=== PATIENT | female | born 1950 | race Caucasian/White ===

== ENCOUNTER 2025-01-31 18:21 | Inpatient (IN) | payer MEDICARE ==
[~2025-01-31] VITALS: Ht 152.4 cm; Wt 54.4 kg
[2025-01-31 20:00] VITALS: BP 129/82; TEMP 208.8; TEMP 98.2; O2SAT 96
[2025-01-31] MEDS ORDERED: FAMO20TA8 PO (22:38)
[2025-01-31] MEDS ORDERED: LOSA25TA27 PO (22:38)
[2025-01-31] MEDS ORDERED: GEMF600T PO (22:38)
[2025-01-31] MEDS ORDERED: FURO-145 PO (22:38)
[2025-01-31] MEDS ORDERED: METF-442 PO (22:38)
[2025-01-31] MEDS ORDERED: MAGNESIUM HYDROXIDE 30 ML UDC PO PRN (23:00)
[2025-01-31] MEDS ORDERED: DEXTROSE 50%-WATER 50 ML DISP.SYRIN IV PRN (23:00)
[2025-01-31] MEDS ORDERED: MAG HYDROX/AL HYDROX/SIMETH 30 ML UDC PO PRN (23:00)
[2025-01-31] MEDS ORDERED: ONDANSETRON HCL/PF 4 MG/2 ML VIAL IVP PRN (23:00)
[2025-01-31] MEDS ORDERED: ACETAMINOPHEN 325 MG TABLET PO PRN (23:00)
[2025-01-31] MEDS ORDERED: Z GUARD REMEDY 4 OZ OINT TP PRN (23:00)
[2025-01-31 23:18] VITALS: BP 129/83; TEMP 98.2; O2SAT 96
[2025-02-01] VITALS: BP_SYST 134; BP_SYST 146; BP_DIAS 65; BP_DIAS 75; TEMP 98.4; O2SAT 95
[2025-02-01] MEDS: IV NS 0.9% 1,000 ML IV PRN (00:04)
[2025-02-01] MEDS: ENOXAPARIN SODIUM 40 MG/0.4 ML DISP.SYRIN SQ ONE (00:20)
[2025-02-01] MEDS ORDERED: CEFTRIAXONE 1GM BAG (ER ONLY) 50 ML IV ONE (00:41)
[2025-02-01] MEDS: CEFTRIAXONE 1 G in IV D5W 50 ML IV SCH (01:05)
[2025-02-01 04:00] VITALS: BP_SYST 153; BP_SYST 155; BP_SYST 156; BP_DIAS 70; BP_DIAS 79; BP_DIAS 86; TEMP 98; TEMP 98.1; O2SAT 97; O2SAT 98
[2025-02-01] MEDS: BLOOD SUGAR DIAGNOSTIC 1 EACH STRIP IN SCH (06:51)
[2025-02-01 07:06] LABS: PLATELET COUNT (AUTO) 246 K/uL (150-450); RED BLOOD CELL COUNT(AUTO) 3.76 MIL/uL (4.0-5.2); RED CELL DISTRIBUTION WIDTH 14.5 % (11.5-15.0); WHITE BLOOD COUNT (AUTO) 5.2 K/uL (4.3-11.0)
[2025-02-01 07:21] LABS: LACTIC ACID 0.9 mmol/L (0.4-2.0)
[2025-02-01 07:31] LABS: ASPARTATE AMINOTRANSFERASE 10.0 U/L (15-37); CALCIUM, SERUM 9.0 mg/dL (8.5-10.1); CREATININE 0.8 mg/dL (0.6-1.3); PHOSPHORUS 3.6 mg/dL (2.5-4.9); SODIUM SERUM 142.0 mmol/L (136-145); TOTAL PROTEIN, SERUM 6.6 g/dL (6.4-8.2); UREA NITROGEN, BLOOD 25.0 mg/dL (7-18)
[2025-02-01] MEDS: LOSARTAN POTASSIUM 25 MG TABLET PO SCH (08:08)
[2025-02-01] MEDS: GEMFIBROZIL 600 MG TABLET PO SCH (08:08)
[2025-02-01] MEDS: FAMOTIDINE (20 MG) 20 MG TABLET PO SCH (08:09)
[2025-02-01 11:02] VITALS: BP_SYST 126; BP_SYST 143; BP_SYST 146; BP_DIAS 71; BP_DIAS 87; BP_DIAS 90
[2025-02-01] MEDS: INSULIN REGULAR, HUMAN 100 UNIT/ML 3 ML VIAL SQ PRN (11:26)
[2025-02-01 16:25] LABS: APPEARANCE,URINE CLOUDY (CLEAR); BLOOD, URINE 2+ Ery/uL (NEGATIVE); LEUKOCYTE ESTERASE ,URINE 3+ (NEGATIVE); NITRITE, URINE NEGATIVE (NEGATIVE); UGLUCOSE NEGATIVE (NEGATIVE)
[2025-02-01 16:44] LABS: ADD URINE CULTURE YES
[2025-02-01 20:00] VITALS: BP 156/82; TEMP 97.9; O2SAT 97
[2025-02-01] MEDS: ENOXAPARIN SODIUM 40 MG/0.4 ML DISP.SYRIN SQ SCH (21:45)
[2025-02-02 04:00] VITALS: BP 155/70; TEMP 98.1; O2SAT 98
[2025-02-02 08:00] VITALS: BP 156/75; TEMP 97.9; O2SAT 96
[2025-02-02 09:29] VITALS: BP 156/75
[2025-02-02] MEDS ORDERED: CIPR500T5 PO (11:59)
== END 2025-02-02 14:35 | disposition home or self-care (01) | DRG 871 ==
LOC: TELE 19:26
PROVIDERS: ADMIT Internal Medicine; ATTEND Internal Medicine
DX: A41.9 Sepsis, unspecified organism (principal); G93.41 Metabolic encephalopathy; N39.0 Urinary tract infection, site not specified; E11.9 Type 2 diabetes mellitus without complications; B96.20 Unspecified Escherichia coli [E. coli] as the cause of diseases classified elsewhere; E78.5 Hyperlipidemia, unspecified; E66.9 Obesity, unspecified; I10 Essential (primary) hypertension; Z87.440 Personal history of urinary (tract) infections; Z68.23 Body mass index [BMI] 23.0-23.9, adult
CPT/HCPCS: 36415; 80048-TC; 80076-TC; 81001; 82962-TC; 83605-TC; 83735-TC; 84100-TC; 85025-TC; 87081-TC; 87086-TC; 97110-TC; 97116-TC; 97530-TC; A4223; G0378; J0696; J1650; J1815; J7030; J7060